=== PATIENT | male | born 1965 | race Caucasian/White ===

== ENCOUNTER → 2017-08-15 | Outpatient (CLI) | payer MEDICAID ==
[~2017-08-15] MED LIST: MILK THISTLE1 CAP PO; NORCO 325 MG-51 TAB PO; TESSALON PERLE100 MG PO; ZANAFLEX2 M2 PO
[2017-08-15 20:21] LABS: HEMOGLOBIN 15.1 g/dL (14.1-18.0)
[2017-08-15 20:22] LABS: LYMPH % 29.7 % (10-50)
[2017-08-15 20:55] LABS: BUN 10 mg/dL (7-18)
[2017-08-15 21:08] LABS: GFR (ESTIMATED) 102 ML/MIN (>60)
[2017-08-17 06:37] LABS: Prostate Specific Ag 1.8 ng/mL (0.0-4.0); Vitamin D, 25-Hydroxy 28.2 ng/mL (30.0-100.0)
[2017-08-17 08:46] LABS: PSA, Free 0.47 ng/mL
== END ==
LOC: LAB 16:57
PROVIDERS: Nurse Practitioner Family
DX: R53.83 Other fatigue (principal)

== ENCOUNTER → 2017-08-16 | Outpatient (CLI) | payer MEDICAID | LOC: LAB 16:10 | DX: Z12.11 Encounter for screening for malignant neoplasm of colon (principal) ==

== ENCOUNTER → 2017-08-17 | Outpatient (CLI) | payer MEDICAID ==
[2017-08-18 16:29] LABS: STOOL OCCULT BLOOD NEGATIVE (NEG)
== END ==
LOC: LAB 16:16
PROVIDERS: Nurse Practitioner Family
DX: Z12.11 Encounter for screening for malignant neoplasm of colon (principal)
CPT/HCPCS: G0328

== ENCOUNTER → 2017-08-18 | Outpatient (CLI) | payer MEDICAID ==
[2017-08-18 16:29] LABS: STOOL OCCULT BLOOD NEGATIVE (NEG)
== END ==
LOC: LAB 16:15
PROVIDERS: Nurse Practitioner Family
DX: Z12.11 Encounter for screening for malignant neoplasm of colon (principal)
CPT/HCPCS: G0328